=== PATIENT | male | born 1985 | race Caucasian/White ===

== ENCOUNTER 2020-05-27 18:54 | Emergency (ER) | payer BC, OTHER ==
--- NOTE | 2020-05-27 19:40 | EDM.PDOC ---
ED HPI GENERAL MEDICAL PROBLEM - General Chief Complaint: Laceration Stated Complaint: CUT ON RIGHT LEG Time Seen by Provider: 05/27/20 19:25 Source of Information: Reports: Patient, Old Records, RN History Limitations: Reports: No Limitations - History of Present Illness INITIAL COMMENTS - FREE TEXT/NARRATIVE: 34 yo male was cutting up a deer late this morning today and his knife slipped and he cut himself to the R leg just above the knee. He really didn't clean the wound much and then drove from the site of injury([facility]) to here. Is not UTD on tetanus. Onset: Today, Sudden Onset Date: 05/27/20 Duration: Hour(s):, Constant Location: Reports: Lower Extremity, Right Quality: Reports: Dull Severity: Mild Improves with: Reports: None Worsens with: Reports: None Context: Reports: Trauma Associated Symptoms: Reports: No Other Symptoms Treatments [employer]: Reports: Other (see below) (none) R proximal knee Pain Score (Numeric/FACES): 1 - Related Data Allergies Allergy/AdvReac Type Severity Reaction Status Date / Time No Known Allergies Allergy Verified 05/27/20 19:06 Home Meds: Home Meds NK [No Known Home Meds] 05/27/20 [History] Past Medical History Respiratory History: Reports: Asthma Other Respiratory History: allergy induced asthma - Infectious Disease History Infectious Disease History: Reports: Shingles Social & Family History - Family History Family Medical History: Noncontributory - Tobacco Use Tobacco Use Status *Q: Never Tobacco User - Caffeine Use Caffeine Use: Reports: None - Recreational Drug Use Recreational Drug Use: No ED ROS GENERAL - Review of Systems Review Of Systems: See Below Constitutional: Reports: No Symptoms Skin: Reports: Wound (R leg) Neurological: Reports: No Symptoms ED EXAM, SKIN/RASH Exam: See Below Exam Limited By: No Limitations General Appearance: Alert, WD/WN, No Apparent Distress Extremities: Normal Inspection Neurological: Alert, Oriented, CN II-XII Intact, Normal Cognition, No Motor/Sensory Deficits Psychiatric: Normal Affect, Normal Mood Skin: Warm, Dry, Normal Color, No Rash, Wound/Incision Location, Skin: Lower Extremity, Right Characteristics: Linear (1 cm linear, just above the knee. No sign of infection or bleeding. ) ED SKIN PROCEDURES - Additional/Other Procedure(s) Other (Free Text) Procedure(s): Wound cleaned and dressed by RN. Course - Vital Signs Last Recorded V/S: Last Vital Signs Temp 36.3 C 05/27/20 19:00 Pulse 76 05/27/20 19:00 Resp 18 05/27/20 19:00 BP 149/75 H 05/27/20 19:00 Pulse Ox 100 05/27/20 19:00 - Orders/Labs/Meds Orders: Active Orders 24 hr Category Date Time Status Vaccines to be Administered [RC] PER UNIT ROUTINE Care 05/27/20 19:28 Active Bacitracin [Bacitracin Oint 1 GM] Med 05/27/20 19:34 Once 1 dose TOP ONETIME ONE Doxycycline [Vibra-Tabs] Med 05/27/20 19:33 Once 200 mg PO ONETIME ONE Meds: Medications Discontinued Medications Generic Name Dose Route Start Last Admin Trade Name Freq PRN Reason Stop Dose Admin Diphtheria/Tetanus/Acell Pertussis 0.5 ml 05/27/20 19:28 Boostrix IM 05/27/20 19:29 .ONCE ONE Departure - Departure Time of Disposition: 19:50 Disposition: Home, Self-Care 01 Condition: Good Clinical Impression: Laceration of right thigh Qualifiers: Encounter type: initial encounter Qualified Code(s): S71.111A - Laceration without foreign body, right thigh, initial encounter - Discharge Information *PRESCRIPTION DRUG MONITORING PROGRAM REVIEWED*: No *COPY OF PRESCRIPTION DRUG MONITORING REPORT IN PATIENT MAURY: No Instructions: Nonsutured Laceration Care Referrals: Sridhar Pereyra MD [Primary Care Provider] - Care Plan Goals: Clean wound twice daily with soap and water. Dry. Apply antibiotic ointment and a new dressing. Recheck for signs of infection. Sepsis Event Note (ED) - Evaluation Sepsis Screening Result: No Definite Risk - Focused Exam Vital Signs: Vital Signs Temp Pulse Resp BP Pulse Ox 05/27/20 19:00 36.3 C 76 18 149/75 H 100 - My Orders Last 24 Hours: My Active Orders 05/27/20 19:28 Vaccines to be Administered [RC] PER UNIT ROUTINE 05/27/20 19:33 Doxycycline [Vibra-Tabs] 200 mg PO ONETIME ONE 05/27/20 19:34 Bacitracin [Bacitracin Oint 1 GM] 1 dose TOP ONETIME ONE - Assessment/Plan Last 24 Hours: My Active Orders 05/27/20 19:28 Vaccines to be Administered [RC] PER UNIT ROUTINE 05/27/20 19:33 Doxycycline [Vibra-Tabs] 200 mg PO ONETIME ONE 05/27/20 19:34 Bacitracin [Bacitracin Oint 1 GM] 1 dose TOP ONETIME ONE
[2020-05-27] MEDS: Bacitracin Oint 1 GM U/D Packet TOP ONE (19:48)
[2020-05-27] MEDS: Diphtheria,Pertussis(Acell),Tetanus Vaccine 0.5 ML Syringe IM ONE (19:49)
[2020-05-27] MEDS: Doxycycline 100 MG Tab PO ONE (19:49)
== END 2020-05-27 20:00 | disposition home or self-care (01) ==
LOC: FB.ED 18:54
DX: S71.111A Laceration without foreign body, right thigh, initial encounter (principal); J45.909 Unspecified asthma, uncomplicated; Z23 Encounter for immunization; W26.0XXA Contact with knife, initial encounter
CPT/HCPCS: 90471; 90715; 99282; A9270